=== PATIENT | female | born 1965 | race Caucasian/White ===

== ENCOUNTER 2024-07-30 16:00 | Outpatient (RCR) | payer OTHER, SELFPAY ==
--- NOTE | 2024-07-09 15:39 | PT.OIERPT ---
PT OP Initial Eval Patient Information Outpatient Physical Therapy Treatment Date: 07/09/24 Visit Reasons: RIGHT SHOULDER PAIN Medical Diagnosis: M25.511 Treatment Dx #1: R shoulder pain Start of Care: 07/09/24 Date of Onset: January 2024 Smoking Status Smoking Status: Never smoker Initial Assessment Subjective: Pt is 59 yr old female who reports onset of R shoulder pain in January with popping in the front of the shoulder. Increased pain with reaching up to the side, lifting things and reaching behind the back hurts the front of the shoulder. PMH: none reported Imaging: Xray of R shoulder Moderate narrowing glenohumeral joint Pt goal: less pain more ROM Objective: R shoulder ArOM: FF: 130 deg Abd: 90 deg ER: 90 deg IR: L5 Stearns-Guru: positive Empty can: positive Herrera's: negative Drop arm: negative Painful arc: positive Axial grind: negative Crepitus: positive over anterior shoulder between bicipital groove and supraspinatus insertion Assessment: Pt presentation consistent with supraspinatus tendinopathy, likely impingement. Pt requires skilled therapy in order to meet goals and has fair rehab potential. PT recommends further diagnostic imaging if ssx don't resolve with therapy. 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 Ind with HEP 2. Improved AROM into all planes to at least 130 deg FF and abduction 3. Pt will reach OH with <=3/10 R shoulder pain 4. Improved strength into all planes to at least 4-/5 Treatment Plan 1. Manual therapy ? 2. Therex ? 3. Modalities as indicated, moist heat, ice, estim ? Frequency and Duration: 1-2x a week for 12 visits Certification Dates: 07/09/24 to 10/05/24 Procedure Charges OP PT Eval Mod Complex 30 minutes: Yes
--- NOTE | 2024-07-21 17:43 | PT.ODAYNRPT ---
PT Outpatient Daily Note OP Daily Note Outpatient Physical Therapy Treatment Date: 07/21/24 Visit Reasons: RIGHT SHOULDER PAIN Subjective: Same as eval Objective: See F/S for therex P x7' Assessment: Pain limits abduction ROM Plan: Continue per POC Length of Time (minutes) of Treatment: 30 Minutes Procedure Charges Therapeutic Exercise 30 minutes: Yes
--- NOTE | 2024-07-30 18:38 | PT.ODAYNRPT ---
PT Outpatient Daily Note OP Daily Note Outpatient Physical Therapy Treatment Date: 07/30/24 Visit Reasons: RIGHT SHOULDER PAIN Subjective: A little less R shoulder pain Objective: See F/S for therex [facility] x7' Assessment: Pain limits abduction ROM consistent with supraspinatus impingement/tendinopathy Plan: Continue per POC Length of Time (minutes) of Treatment: 30 Minutes Procedure Charges Therapeutic Exercise 30 minutes: Yes
== END 2024-07-31 23:59 | disposition home or self-care (01) ==
LOC: CPTX 16:00
PROVIDERS: PCP Nurse Practitioner Family; Referring Provider Nurse Practitioner Family; Visit Provider Nurse Practitioner Family
DX: M25.511 Pain in right shoulder (principal)
CPT/HCPCS: 97110; 97162

== ENCOUNTER 2024-08-25 16:30 | Outpatient (RCR) | payer OTHER, SELFPAY ==
--- NOTE | 2024-08-06 17:32 | PT.ODAYNRPT ---
PT Outpatient Daily Note OP Daily Note Outpatient Physical Therapy Treatment Date: 08/06/24 Visit Reasons: RT shoulder pain Subjective: A little less R shoulder pain since starting therapy but still hurts to reach to the side Objective: See F/S for cecile TAVARES x7' Painful arc: positive Assessment: Pain limits abduction ROM consistent with supraspinatus impingement/tendinopathy Plan: Continue per POC Length of Time (minutes) of Treatment: 30 Minutes Procedure Charges Therapeutic Exercise 30 minutes: Yes
--- NOTE | 2024-08-11 18:17 | PT.ODAYNRPT ---
PT Outpatient Daily Note OP Daily Note Outpatient Physical Therapy Treatment Date: 08/11/24 Visit Reasons: RT shoulder pain Subjective: A little less R shoulder pain since starting therapy but still hurts to reach to the side Objective: See F/S for cecile TAVARES x7' Painful arc: positive Assessment: Pain limits abduction ROM consistent with supraspinatus impingement/tendinopathy Plan: Continue per POC Length of Time (minutes) of Treatment: 30 Minutes Procedure Charges Therapeutic Exercise 30 minutes: Yes
--- NOTE | 2024-08-18 17:18 | PT.ODAYNRPT ---
PT Outpatient Daily Note OP Daily Note Outpatient Physical Therapy Treatment Date: 08/13/24 Visit Reasons: RT shoulder pain Subjective: A little less R shoulder pain since starting therapy but still hurts to reach to the side Objective: See F/S for cecile TAVARES x7' Painful arc: positive Assessment: Slow progress with goals due to pain that limits abduction ROM consistent with supraspinatus impingement/tendinopathy Plan: Continue per POC Length of Time (minutes) of Treatment: 30 Minutes Procedure Charges Therapeutic Exercise 30 minutes: Yes
--- NOTE | 2024-08-18 17:20 | PT.ODAYNRPT ---
PT Outpatient Daily Note OP Daily Note Outpatient Physical Therapy Treatment Date: 08/18/24 Visit Reasons: RT shoulder pain Subjective: A little less R shoulder pain since starting therapy but still hurts to reach to the side Objective: See F/S for cecile TAVARES x7' Painful arc: positive Assessment: Slow progress with goals due to pain that limits abduction ROM consistent with supraspinatus impingement/tendinopathy Plan: Continue per POC Length of Time (minutes) of Treatment: 30 Minutes Procedure Charges Therapeutic Exercise 30 minutes: Yes
--- NOTE | 2024-08-20 17:35 | PT.ODAYNRPT ---
PT Outpatient Daily Note OP Daily Note Outpatient Physical Therapy Treatment Date: 08/20/24 Visit Reasons: RT shoulder pain Subjective: Getting better slowly with a little less R shoulder pain since starting therapy but still hurts to reach to the side Objective: See F/S for cecile TAVARES x7' Painful arc: positive Assessment: Slow progress with goals due to pain that limits abduction ROM consistent with supraspinatus impingement/tendinopathy Plan: Continue per POC Length of Time (minutes) of Treatment: 30 Minutes Procedure Charges Therapeutic Exercise 30 minutes: Yes
--- NOTE | 2024-08-25 17:10 | PT.ODAYNRPT ---
PT Outpatient Daily Note OP Daily Note Outpatient Physical Therapy Treatment Date: 08/25/24 Visit Reasons: RT shoulder pain Subjective: Was able to trim trees without significant pain in R shoulder this weekend Objective: See F/S for therex [facility] x7' Assessment: Pt is progressing slowly with goals Plan: Continue per POC Length of Time (minutes) of Treatment: 30 Minutes Procedure Charges Therapeutic Exercise 30 minutes: Yes
== END 2024-08-28 23:59 | disposition home or self-care (01) ==
LOC: CPTX 16:30
PROVIDERS: PCP Nurse Practitioner Family; Referring Provider Nurse Practitioner Family; Visit Provider Nurse Practitioner Family
DX: M25.511 Pain in right shoulder (principal)
CPT/HCPCS: 97110

== ENCOUNTER 2024-09-09 16:30 | Outpatient (RCR) | payer OTHER, SELFPAY ==
--- NOTE | 2024-08-31 17:20 | PTNOTE_ITS ---
PT Outpatient Daily Note OP Daily Note Outpatient Physical Therapy Treatment Date: 08/31/24 Visit Reasons: RT shoulder pain Subjective: No significant pain in R shoulder this weekend. It hurts in certain positions still Objective: See F/S for therex [facility] x7' Assessment: Pt is progressing slowly with goals but there is improved ROM of R shoulder Plan: Continue per POC Length of Time (minutes) of Treatment: 30 Minutes Procedure Charges Therapeutic Exercise 30 minutes: Yes
--- NOTE | 2024-09-02 17:54 | PTNOTE_ITS ---
PT Outpatient Daily Note OP Daily Note Outpatient Physical Therapy Treatment Date: 09/02/24 Visit Reasons: RT shoulder pain Subjective: No significant pain in R shoulder this weekend. It hurts in certain positions still Objective: See F/S for therex [facility] x7' Assessment: Pt is progressing slowly with goals but there is improved ROM of R shoulder Plan: Continue per POC Length of Time (minutes) of Treatment: 30 Minutes Procedure Charges Therapeutic Exercise 30 minutes: Yes
--- NOTE | 2024-09-07 18:22 | PTNOTE_ITS ---
PT Outpatient Daily Note OP Daily Note Outpatient Physical Therapy Treatment Date: 09/07/24 Visit Reasons: RT shoulder pain Subjective: No significant pain in R shoulder this weekend pulling weeds. It hurts in certain positions still Objective: See F/S for therex [facility] x7' Assessment: Pt is progressing slowly with goals but there is improved ROM of R shoulder Plan: Reassess Length of Time (minutes) of Treatment: 30 Minutes Procedure Charges Therapeutic Exercise 30 minutes: Yes
--- NOTE | 2024-09-09 17:36 | PTNOTE_ITS ---
PT OP Progress/Discharge Note Date of Service: 09/09/24 Progress Note/DC Note Progress Note/Discharge Note: Progress Note Patient Information Visit Reasons: RT shoulder pain Service Continue Service or Discharge: Continue Service Status Subjective: No significant pain in R shoulder over the weekend pulling weeds. It hurts in certain positions still to reach across her body Objective: See F/S for therex [facility] x7' R shoulder AROM: Strength: FF: 130 deg 4-/5 Abd: 120 deg 4-/5 ER: 90 deg Assessment: Pt has attended 06/11 Rx sessions with good progress with therapy goals. She has improved AROM into abduction almost enough to meet the goal of 130 deg. Pt can reach OH but has pain at end-range. She has met the goal of 4-/5 strength. Pt is progressing slowly with goals and ssx are consistent with RC tendinopathy/impi ngement. Plan: If provider wants pt to continue with therapy we will need another therapy order for more visits or a signature on this progress note to extend POC by 8 more visits. Procedure Charges Therapeutic Exercise 30 minutes: Yes
== END 2024-09-28 23:59 | disposition home or self-care (01) ==
LOC: CPTX 16:30
PROVIDERS: PCP Nurse Practitioner Family; Referring Provider Nurse Practitioner Family; Visit Provider Nurse Practitioner Family
DX: M25.511 Pain in right shoulder (principal)
CPT/HCPCS: 97110

== ENCOUNTER 2024-09-24 17:25 | Inpatient (IN) | payer BC, SELFPAY ==
[2024-09-24 18:06] VITALS: BP 123/76; PULSE 105; RESP 18; TEMP 38.3; O2SAT 95; BMI 25.7
--- NOTE | 2024-09-24 18:53 | XR_ITS ---
Examination: PA chest single view TECHNIQUE: Upright PA chest single view. Examination date time: September 24, 2024 1919 hours INDICATIONS: Coughing chest pain and chest tightness beginning 2 days ago FINDINGS: Normal heart size Accentuation of basilar bronchovascular markings Suspicious for early pneumonia left base Moderate osteopenia IMPRESSION: Basilar bronchitis pattern Suspicious for early pneumonia left base
--- NOTE | 2024-09-24 18:53 | EKG_ITS ---
[facility] Test Date: 2024-09-24 Pat Name: JOVI BONE Department: Room: - Gender: Female [employer]: : [id number] Requested By: Smith Raines Order Number: [id number] Reading MD: Smith Raines Measurements Intervals [place] Rate: 107 P: 44 NC: 121 QRS: 28 QRSD: 80 T: 18 QT: 312 QTc: 417 Interpretive Statements SINUS TACHYCARDIA ABNORMAL RHYTHM ECG No previous ECG available for comparison /store/S0/[id number]/ecg/[id number].pdf
--- NOTE | 2024-09-24 18:54 | EDRME_ITS ---
Rapid Medical Screening Exam [facility] Arrival date/time: 09/24/24 17:25 59F with no significant PMH presents to ED with 5 days of worsening cough, some SOB/CP, N/V, ab pain, and non-bloody diarrhea. Chief Complaint: Flu Like Symptoms Time Seen by Provider: 09/24/24 18:52 Vital signs: Vital Signs Temperature 100.9 F H 09/24/24 18:06 Pulse Rate 105 H 09/24/24 18:06 Respiratory Rate 18 09/24/24 18:06 Blood Pressure 123/76 09/24/24 18:06 Pulse Oximetry (%) 95 09/24/24 18:06 Oxygen Delivery Method Room Air 09/24/24 18:06
[2024-09-24 19:30] LABS: Collection Type, Urine Clean Catch
[2024-09-24 19:34] LABS: Lactate (Lactic Acid) 1.5 mMol/L (0.4-2.0)
[2024-09-24 19:38] LABS: Basophils % (Auto) 0 % (0-2.5); Eosinophils % (Auto) 0 % (0-10); Hematocrit 40.6 % (36.0-46.0); Hemoglobin 14.3 g/dL (12.0-16.0); Immature Granulocytes % (Auto) 0 % (0-0); Immature Granulocytes Auto 0.03 Thou/mm3 (0.00-0.00); Lymphocytes # (Auto) 0.5 Thou/mm3 (1.0-4.8); Lymphocytes % (Auto) 5 % (10-50); Mean Corpuscular HGB Conc 35.2 g/dl (31.0-37.0); Mean Corpuscular Hemoglobin 29.9 pg (25.0-35.0); Mean Corpuscular Volume 85 fL (80-100); Monocytes # (Auto) 0.5 Thou/mm3 (0.0-0.8); Monocytes % (Auto) 4 % (0-12); Neutrophils # (Auto) 9.8 Thou/mm3 (1.8-7.7); Neutrophils % (Auto) 91 % (37-80); Nucleated Red Blood Cell % 0 /100 WBC (0); Platelet Count 202 Thou/mm3 (140-440); RDW Standard Deviation 40.1 fL (36.4-46.3); Red Blood Count 4.78 Miln/mm3 (4.00-5.20); White Blood Count 10.8 Thou/mm3 (3.6-11.0)
[2024-09-24 20:02] LABS: Bacteria,Urine 3+; Bilirubin,Urine 1+ (Negative); Blood,Urine 2+ (Negative); Clarity,Urine Turbid (Clear/Hazy); Color,Urine Drk-Yellow (Lt Yel-Yel); Glucose, Urine Negative (Negative); Ketones,Urine 4+ (Negative); Leukocyte Esterase,Urine Negative (Negative); Nitrite,Urine Negative (Negative); PH,Urine 6.5 (5.0-7.0); Protein,Urine 3+ (Neg - Trace); RBC,Urine 5 /hpf (0-3); Specific Gravity,Urine 1.035 (1.001-1.035); Squamous Epithelial Cell,Urine 5 /hpf (0-5); WBC,Urine 18 /hpf (0-5)
[2024-09-24 20:07] LABS: Alanine Aminotransferase 39 U/L (10-49); Albumin, Serum 4.6 gm/dL (3.4-4.8); Albumin/Globulin Ratio 1.5 (1.2-2.2); Alkaline Phosphatase 100 U/L (46-116); Anion Gap 15 (7-16); Aspartate Amino Transferase 45 U/L (0-34); BUN/Creatinine Ratio 20 Ratio (12-20); Bilirubin,Total 2.4 mg/dL (0.3-1.2); Blood Urea Nitrogen 22 mg/dL (9-23); Calcium 8.9 mg/dL (8.3-10.6); Calcium (Corrected) 8.9 mg/dL (8.5-10.1); Chloride 95 mMol/L (98-107); Creatinine (Component) 1.1 mg/dL (0.6-1.3); Glucose 109 mg/dL (74-106); Lipase 31 U/L (12-53); Osmolality,Calculated 266 (275-295); Potassium 3.8 mMol/L (3.4-5.1); Procalcitonin 19.84 ng/ml (0.0-0.49); Sodium 131 mMol/L (136-145); Total Protein 7.6 gm/dL (5.7-8.2); Troponin I < 0.020 ng/mL (0.0-0.045); eGFR 57 See Note
--- NOTE | 2024-09-24 20:12 | XR_ITS ---
Examination: CT abdomen with intravenous contrast CT pelvis with intravenous contrast 2-D coronal reconstructions 2-D sagittal reconstructions Date and time of exam:September 24, 2024 2150 hours INDICATIONS: Right lower abdominal pain nausea vomiting diarrhea regaining 2 days ago. CTDI: vol (mGy) 8.13 DLP: (mGycm) 447 Technique: Multiple axial sections of the abdomen and pelvis have been obtained. 64 slice high-resolution scanner used. 3 mm axial sections have been obtained, post intravenous injection 60 cc Isovue 370 2-D sagittal, coronal reconstructions obtained. Low dose protocols were performed. One or more of the following dose reduction techniques were used; automated exposure control, adjustment of the mA and/or KV according to patient size, use of iterative reconstruction technique. Findings: Mild pneumonia left base No renal or ureteral calculi, no hydronephrosis No gallstones No renal or ureteral calculi, no hydronephrosis Multiple fluid distended small bowel loops Fluid enlarged and inflamed appendix medial to the cecum axial images 153 through 176 consistent with appendicitis No pelvic abscess Bladder intact IMPRESSION: Acute appendicitis No pelvic abscess
[2024-09-24] MEDS: SODIUM CHLORIDE 0.9% 1000 ML 1,000 ML 999 ML IV (21:00)
[2024-09-24] MEDS: ONDANSETRON INJ 2 MG/ML INJ 2 ML 4 MG IV (21:10)
[2024-09-24] MEDS: ACETAMINOPHEN 500 MG TABLET PO (21:11)
[2024-09-24] MEDS: cefTRIAXone/D5w 1gm IV premix 1 GM/50 ML BAG IV (21:11)
[2024-09-24] MEDS: OSELTAMIVIR 75 MG CAPSULE PO (23:08)
[2024-09-24] MEDS: MORPHINE SULF INJ 10 MG/ML VIAL 4 MG IVP (23:08)
[2024-09-24 23:14] VITALS: BP 103/65; PULSE 79; RESP 19; TEMP 36.8
--- NOTE | 2024-09-24 23:32 | PD.EDURI ---
Upper Respiratory Inf. RME/HPI General Chief Complaint: Flu Like Symptoms Stated Complaint: NAUSEA, DIARRHEA, VOMITING, AB PAIN Time Seen by Provider: 09/24/24 18:52 Arrival date/time: 09/24/24 17:25 RME / HPI RME / HPI Narrative: 59-year-old female patient with no past medical history, came in for evaluation regarding flulike symptoms. Patient's been having flulike symptoms for the last 5 days, described as cough, sore throat, mild shortness of breath, chest discomfort, nausea and vomiting. Last night patient developed right lower quadrant pain, sharp in character, severity moderate. Also complained of nonbloody loose stool. Denies any fever denies any other complaints no medications taken prior to arrival. Related Data Previous Rx's ?Medication ?Instructions ?Recorded hydrocodone 5 mg-acetaminophen 325 1 tab PO BID PRN pain #10 tabs 09/20/21 mg tablet ibuprofen 800 mg tablet 800 mg PO TID PRN pain #30 tabs 09/20/21 Allergies Allergy/AdvReac Type Severity Reaction Status Date / Time No Known Allergies Allergy Verified 09/24/24 17:28 Review of Systems Review of Systems Narrative Review of Systems: Review of system reviewed and within normal limits except mentioned in HPI ED Exam Narrative Physical exam: VITAL SIGNS: Reviewed. GENERAL APPEARANCE: Alert and interactive, follows commands, no acute distress, HEAD AND FACE: Non-traumatic. ENT: PERRL, pink conjunctivitis, eyelid no trauma, Mucous membrane moist. NECK: Supple, nontender, no nuchal rigidity. CHEST: No tenderness, no crepitus, no paradoxical movement, no retractions. LUNGS: Clear, well ventilated, symmetric, no rales, no wheezing, no ronchi, no stridor, good breath sounds bilaterally. HEART: Regular rate, regular rhythm, no murmur, no gallops. ABDOMEN: Soft, positive bowel sounds, nondistended, no guarding, right lower quadrant tenderness, no rebound, no masses, RECTAL: Deferred. GENITAL: Deferred. NEUROLOGICAL: Gross motor function intact sensory function intact, Appropriate for age. MUSCULOSKELETAL: low back nontender, full range of motion. EXTREMITIES: Nontender, full range of motion. SKIN: Color pink, dry, no rash, no lacerations, no abrasions, no contusions. LYMPHATICS: Deferred. Course Quality Measures none Orders Category Date Time Status Bedside COVID-19 Antigen Test NOW Care 09/24/24 18:31 Active Bedside Influenza A&B Antigen Test NOW Care 09/24/24 18:[address] Screening NOW Care 09/24/24 20:12 Active EKG (ED ONLY) *Do not use* NOW Care 09/24/24 18:53 Completed Insert IV NOW Care 09/24/24 18:53 Active NPO NOW Care 09/24/24 23:31 Active Consult to General Surgery Stat Cons 09/24/24 23:31 Ordered Diet NPO (NOW) Diet 09/24/24 23:[address] abdomen pelvis w con Stat Exams 09/24/24 20:12 Completed EKG (ED Only) Stat Exams 09/24/24 18:53 Draft XR chest 1V portable Stat Exams 09/24/24 18:53 Completed CBC Stat Lab 09/24/24 19:26 Completed Comprehensive Metabolic Panel Stat Lab 09/24/24 19:26 Completed Lactate (Lactic Acid) Stat Lab 09/24/24 19:26 Completed Lipase Stat Lab 09/24/24 19:26 Completed Procalcitonin Stat Lab 09/24/24 19:26 Completed Troponin I Stat Lab 09/24/24 19:26 Completed Urinalysis Stat Lab 09/24/24 19:15 Completed Acetaminophen Tab [Tylenol ES Tab] Med 09/24/24 18:53 Discontinued 500 mg PO X1 ONE Morphine Inj Med 09/24/24 22:54 Discontinued 4 mg IVP X1 ONE Ondansetron Inj [Zofran Inj] Med 09/24/24 18:53 Discontinued 4 mg IV X1 ONE Oseltamivir [Tamiflu] Med 09/24/24 22:53 Discontinued 75 mg PO X1 ONE Piper/Tazo 3.375 gm Premix [Zosyn] Med 09/24/24 23:30 Ordered 3.375 gm in 50 ml IV X1 Sodium Chloride 0.9% 1000 ml [Ns] 1,000 ml Med 09/24/24 18:53 Discontinued IV 999 mls/hr Sodium Chloride 0.9% 1000 ml [Ns] 1,000 ml Med 09/24/24 20:21 Discontinued IV 999 mls/hr cefTRIAXone/D5w 1gm IV premix [Rocephin/D5w 1gm IV Med 09/24/24 20:12 Discontinued premix] 1 gm in 50 ml IV X1 Vital Signs Vital signs: Vital Signs Temperature 100.9 F H 09/24/24 18:06 Pulse Rate 105 H 09/24/24 18:06 Respiratory Rate 18 09/24/24 18:06 Blood Pressure 123/76 09/24/24 18:06 Pulse Oximetry (%) 95 09/24/24 18:06 Oxygen Delivery Method Room Air 09/24/24 18:06 Upper Respiratory Infection [facility] Narrative [facility] Narrative:: 59-year-old female patient with no past medical history, came in for evaluation regarding flulike symptoms. Patient's been having flulike symptoms for the last 5 days, described as cough, sore throat, mild shortness of breath, chest discomfort, nausea and vomiting. Last night patient developed right lower quadrant pain, sharp in character, severity moderate. Also complained of nonbloody loose stool. Denies any fever denies any other complaints no medications taken prior to arrival. Patient tested positive for influenza. CBC no leukocytosis noted, total bili was noted to be 2.4 AST of 45 Pro-Nixon of 19.8, urinalysis positive for UTI. CT scan of the abdomen and pelvis showed acute appendicitis. Patient is having tenderness to the right lower quadrant also on palpation Patient received IV fluids morphine, IV ceftriaxone initially, I added IV Zosyn. I consulted Dr. Gavin, general surgeon on-call, and advised me to asked the hospitalist to admit the patient Patient data External records reviewed:: None Clinical information provided by:: none Social determinants that could affect healthcare access:: none Patient has the following chronic illnesses:: None How is presenting disease/condition affected by chronic disease/condition?: no chronic disease Evaluation data The following diagnostics were reviewed and interpreted by me:: lab results and radiology exam(s) Lab and/or radiology exams considered but not ordered:: None Interpretation Summary: See results in MDM Medications / Prescriptions Medications or Prescriptions considered but not ordered:: None none Medication administrations:: Medication Administration History Piperacillin/Tazobactam/Dextrose (Zosyn) 3.375 gm in 50 mls @ 100 mls/hr IV X1 ONE Stop: 09/24/24 23:59 Discontinued Medications Acetaminophen (Acetaminophen 500 Mg Tablet) 500 mg PO X1 ONE Stop: 09/24/24 18:54 Last Admin: 09/24/24 21:11 Dose: 500 mg Documented By: [email or web address] Sodium Chloride (Ns) 1,000 mls @ 999 mls/hr IV .Q1H1M ONE Stop: 09/24/24 19:53 Last Admin: 09/24/24 21:00 Dose: 999 mls/hr Documented By: Ceftriaxone Sodium/Dextrose (Rocephin/D5w 1gm Iv Premix) 1 gm in 50 mls @ 100 mls/hr IV X1 ONE Stop: 09/24/24 20:41 Last Admin: 09/24/24 21:11 Dose: 100 mls/hr Documented By: YUDY Sodium Chloride (Ns) 1,000 mls @ 999 mls/hr IV .Q1H1M ONE Stop: 09/24/24 21:21 Morphine Sulfate (Morphine Sulf Inj 10 Mg/Ml Vial) 4 mg IVP X1 ONE Stop: 09/24/24 22:55 Last Admin: 09/24/24 23:08 Dose: 4 mg Documented By: YUDY Ondansetron HCl (Ondansetron Inj 2 Mg/Ml Inj 2 Ml) 4 mg IV X1 ONE; Protocol Stop: 09/24/24 18:54 Last Admin: 09/24/24 21:10 Dose: 4 mg Documented By: YUDY Oseltamivir Phosphate (Oseltamivir 75 Mg Capsule) 75 mg PO X1 ONE Stop: 09/24/24 22:54 Last Admin: 09/24/24 23:08 Dose: 75 mg Documented By: YUDY Tamiflu, Zofran, morphine IV fluid ceftriaxone and IV Zosyn Consultations Consultation(s) initiated? (list below): No Diagnosis Upper Respiratory Differential Diagnosis: upper respiratory infection and influenza Most likely diagnosis given after review of the tests above:: Influenza, acute appendicitis Admission Indicated Admission indicated?: indicated Explain why admission is indicated or not indicated:: Patient is to be admitted for further management. Admission Request Was there a request for admission?: Yes Admission Attestation Admission request attestation: Discussed case with [Dr. Edmondson] from Hospitalist service regarding admission. Discussed patients ED course, exam findings, labs, and radiology results. The Hospitalist [agrees] to accept the patient for admission. Disposition Plan Disposition Plan: Admit Discharge Plan Plan Patient Disposition: Admit Acute Care w/in Hospital Disposition Comment: Stable Prescriptions/Referrals Prescriptions/Med Rec: No Action ibuprofen 800 mg tablet 800 mg PO TID PRN (Reason: pain) Qty: 30 0RF hydrocodone-acetaminophen 5-325 mg tablet 1 tab PO BID MDD 10 PRN (Reason: pain) Qty: 10 0RF Referrals: No Primary/Family,Physician [Primary Care Provider] - In 1 week Problem List Clinical Impression: Acute appendicitis, Influenza Patient/Caregiver Discharge Instructions Print Language: Chilean Stand Alone Forms: Willa Award Info., Patient Portal Info Letter
[2024-09-25] VITALS (7 sets, daily range): BP systolic 108–155; BP diastolic 63–95; PULSE 70–95; RESP 15–95; TEMP 36.1–36.9; O2SAT 93–99; BMI 26.4; BMI 25.7
[2024-09-25] MEDS: SODIUM CHLORIDE 0.9% 1000 ML 1,000 ML 999 ML IV (00:31)
[2024-09-25] MEDS: PIPER/TAZO 3.375 GM PREMIX 3.375 GM/50 ML BAG IV ×3 (00:36→21:22)
--- NOTE | 2024-09-25 00:43 | ESHP_ITS ---
Documentation for date of: 09/25/24 HPI History of Present Illness Chief complaint: Abdominal pain for one day before presentation History of present illness: HPI:A 59-year-old female patient with no past medical history presented to the ED due to acute abdominal pain that started in the lower abdomen for 1 day. Patient reported that the pain is dull aching associated with multiple episodes of vomiting and diarrhea. Denied any dysuria or frequency. 5 days before presentation patient reported that she had flulike symptoms in which she had runny nose, chills, fever, and cough in which she was treated with [id number] medications. Patient denied any vaginal discharge, change in color of urine, vomiting of blood or bleeding per rectum. Patient denied using any herbal meds or substances. Patient denied any similar symptoms in the past. Home medications: None ED course: At the ED patient was found to be septic with heart rate of 105, body temperature of 100.9, other vitals within normal limits saturating well on room air. Her labs showed borderline WBCs of 10.8, CMP was only significant for serum creatinine of 1.1, T. bili 2.4, AST 45 however ALT and alk phos were within normal limit, Pro-Nixon was 19.84, however lactic acid was within normal limits. Urinalysis was positive for blood, WBCs, bacteria, ketones and proteins however patient denied any urinary tract symptoms. Patient was tested for influenza and he was positive for influenza B. Chest x-ray showed suspicious left lower lobe pneumonia with possible bronchitis CT scan confirmed that the patient has left lower lobe pneumonia however also it showed radiological picture of acute appendicitis. No abscess was found. 2 L of fluid at the ED and was given Zofran and single dose of ceftriaxone and Tamiflu also was given a single dose of morphine for the pain patient was admitted for management of acute appendicitis PMH:None PSX:None Social hx: Alcohol: Denied Tobacco: Denied Illicit drugs: Denied Allergies: No known allergies Review of Systems Review of Systems Systems Reviewed: All systems reviewed, normal except as documented Exam Vital Signs Temp Pulse Resp BP Pulse Ox O2 Del Method 98.3 F 73 17 103/65 95 Room Air 09/24/24 23:14 09/25/24 00:41 09/25/24 00:41 09/24/24 23:14 09/24/24 18:06 09/24/24 23:14 Narrative Exam GEN: AOx3, able to speak full sentences. HEENT: NC/AC, PERRLA, oral mucosa moist, neck supple. CVS: RRR, S1-S2 present, no murmurs appreciated. RESP: CTAB. GI: Abdomen soft, mild tenderness in the right iliac fossa. No rebound tenderness negative Rovsing sign. MSK: Able to move all 4 limbs, no lower extremity edema. SKIN: Warm and dry. IRONING PLEATER: CN II-XII and Sensation grossly intact. Results: Labs 09/24/24 19:26 09/24/24 19:26 Labs: Short CBC 09/24/24 Range/Units 19:26 WBC 10.8 (3.6-11.0) Thou/mm3 Hgb 14.3 (12.0-16.0) g/dL Hct 40.6 (36.0-46.0) % Plt Count 202 (140-440) Thou/mm3 BMP 09/24/24 19:26 Sodium 131 L Potassium 3.8 Chloride 95 L Carbon Dioxide 21.0 BUN 22 Creatinine 1.1 Glucose 109 H Calcium 8.9 Cardiac Enzymes 09/24/24 Range/Units 19:26 Troponin I < 0.020 (0.0-0.045) ng/mL Liver Function 09/24/24 Range/Units 19:26 Total Bilirubin 2.4 H (0.3-1.2) mg/dL AST 45 H (0-34) U/L ALT 39 (10-49) U/L Alkaline Phosphatase 100 (46-116) U/L Albumin 4.6 (3.4-4.8) gm/dL Urine 09/24/24 Range/Units 19:15 Urine Color Drk-Yellow A (Lt Yel-Yel) Urine Clarity Turbid A (Clear/Hazy) Urine pH 6.5 (5.0-7.0) Ur Specific [place] 1.035 (1.001-1.035) Urine Protein 3+ A (Neg - Trace) Urine Glucose (UA) Negative (Negative) Quality Measures Quality Measures none Medications Home Medications and Allergies Allergies Allergy/AdvReac Type Severity Reaction Status Date / Time No Known Allergies Allergy Verified 09/24/24 17:28 Visit Medications Piperacillin/Tazobactam/Dextrose (Zosyn) 50 mls @ 100 mls/hr IV Q6HR TERA Stop: 10/02/24 05:59 Lactated Ringer's (Lactated Ringers) 1,000 mls @ 75 mls/hr IV .[id number] TERA Stop: 10/25/24 00:44 Acetaminophen (Ofirmev Inj) 1,000 mg in 100 mls @ 250 mls/hr IV Q6HR PRN PRN Reason: Fever or mild pain 1-3 Stop: 09/25/24 18:23 Morphine Sulfate (Morphine Sulf Inj 10 Mg/Ml Vial) 2 mg IVP Q3H PRN PRN Reason: PAIN SCALE 7-10 (Severe Stop: 09/30/24 00:33 Ondansetron HCl (Ondansetron Inj 2 Mg/Ml Inj 2 Ml) 4 mg IV Q6H PRN; Protocol PRN Reason: NAUSEA OR VOMITING Stop: 10/25/24 00:33 Oseltamivir Phosphate (Oseltamivir (State Provided) 75 Mg Capsule) 75 mg PO BID TERA Stop: 09/30/24 08:59 Pantoprazole Sodium (Pantoprazole Inj 40 Mg Vial) 40 mg IVP QDAY [facility] Stop: 10/25/24 08:59 Sodium Chloride (Sodium Chloride Rt 10% 15 Ml Nebu) 5 ml INH X1 ONE Stop: 09/25/24 00:35 Discontinued Medications Acetaminophen (Acetaminophen 500 Mg Tablet) 500 mg PO X1 ONE Stop: 09/24/24 18:54 Last Admin: 09/24/24 21:11 Dose: 500 mg Sodium Chloride (Ns) 1,000 mls @ 999 mls/hr IV .Q1H1M ONE Stop: 09/24/24 19:53 Last Infusion: 09/24/24 23:50 Dose: Infused Ceftriaxone Sodium/Dextrose (Rocephin/D5w 1gm Iv Premix) 1 gm in 50 mls @ 100 mls/hr IV X1 ONE Stop: 09/24/24 20:41 Last Infusion: 09/24/24 23:46 Dose: Infused Sodium Chloride (Ns) 1,000 mls @ 999 mls/hr IV .Q1H1M ONE Stop: 09/24/24 21:21 Last Admin: 09/25/24 00:31 Dose: 999 mls/hr Piperacillin/Tazobactam/Dextrose (Zosyn) 3.375 gm in 50 mls @ 100 mls/hr IV X1 ONE Stop: 09/24/24 23:59 Last Admin: 09/25/24 00:36 Dose: 100 mls/hr Morphine Sulfate (Morphine Sulf Inj 10 Mg/Ml Vial) 4 mg IVP X1 ONE Stop: 09/24/24 22:55 Last Admin: 09/24/24 23:08 Dose: 4 mg Ondansetron HCl (Ondansetron Inj 2 Mg/Ml Inj 2 Ml) 4 mg IV X1 ONE; Protocol Stop: 09/24/24 18:54 Last Admin: 09/24/24 21:10 Dose: 4 mg Oseltamivir Phosphate (Oseltamivir 75 Mg Capsule) 75 mg PO X1 ONE Stop: 09/24/24 22:54 Last Admin: 09/24/24 23:08 Dose: 75 mg Assessment & Plan Plan Summary:A 59-year-old female patient with no past medical history presented to the ED due to acute abdominal pain that started in the lower abdomen for 1 day. Patient reported that the pain is dull aching associated with multiple episodes of vomiting and diarrhea. Denied any dysuria or frequency. Patient was admitted for management of acute appendicitis. #Sepsis most likely secondary to acute appendicitis versus pneumonia #Acute appendicitis At the ED patient was found to be septic with heart rate of 105, body temperature of 100.9, other vitals within normal limits saturating well on room air. Her labs showed borderline WBCs of 10.8, CMP was only significant for serum creatinine of 1.1,, Pro-Nixon was 19.84, however lactic acid was within normal limits. Urinalysis was positive for blood, WBCs, bacteria, ketones and proteins however patient denied any urinary tract symptoms. CT scan showed radiological picture of acute appendicitis. Plan ? [facility] ? Surgical consultation to Dr. Nunes was ordered, recommendations appreciated ? Start the patient on Zosyn every 4 hours ? Start the patient on Ringer lactate 75 mL/h ? Pain management with Tylenol IV every 6 hours as needed, morphine 3 mg every 3 hours as needed ? Zofran for the nausea and vomiting ? Follow-up in the urine culture and blood culture results ? Keep patient n.p.o. in anticipation for appendectomy tomorrow morning ? Sent for coagulation panel and type and screen #Community-acquired pneumonia #Flu Patient reported flulike symptoms for the past 5 days. Associated with cough and chills. Patient was tested for influenza and he was positive for influenza B. We believe that this most likely influenza infection that is followed by secondary bacterial infection. Chest x-ray showed suspicious left lower lobe pneumonia with possible bronchitis CT scan confirmed that the patient has left lower lobe pneumonia Patient was given IV fluids in the ED 2 L, patient saturating well on room air and was given single dose of ceftriaxone. Plan ? Patient is already started on Zosyn as above ? MRSA screening was sent, follow-up on the results ? Sputum culture was sent follow-up on the final results ? Tamiflu #Hyperbilirubinemia T. bili 2.4, AST 45 however ALT and alk phos were within normal limit Physical examination there was no jaundice, no right upper quadrants pain or tenderness. We believe that hyperbilirubinemia is secondary to sepsis Plan ? Daily CMP ? Consider hepatitis and cholestasis workup if T. bili continue to increase Hospital Maintenance: FEN: N.p.o. DVT ppx: SCD GI ppx: Protonix IV lines: PIV Parra: None Code status: Full code Dispo: MedSurg Patient's plan and care discussed with my attending, Dr. Delvis Navarrete MD Internal Medicine PGY-2 Attending Provider Attestation/Addendum Pt was evaluated and plan formulated together with the housestaff team. I have reviewed the residents note above and agree with most of its content. Please refer to the residents note for additional details.
[2024-09-25 01:06] LABS: Partial Thromboplastin Time 33.8 Seconds (22.0-36.0); Prothrombin Time 11.3 Seconds (9.0-12.2)
[2024-09-25] MEDS: RINGERS LACTATED 1000 ML 1,000 ML 75 ML IV ×2 (01:49→14:13)
[2024-09-25 06:03] LABS: Basophils % (Auto) 0 % (0-2.5); Eosinophils % (Auto) 0 % (0-10); Hematocrit 32.1 % (36.0-46.0); Hemoglobin 11.4 g/dL (12.0-16.0); Immature Granulocytes % (Auto) 1 % (0-0); Immature Granulocytes Auto 0.07 Thou/mm3 (0.00-0.00); Lymphocytes # (Auto) 0.7 Thou/mm3 (1.0-4.8); Lymphocytes % (Auto) 11 % (10-50); Mean Corpuscular HGB Conc 35.5 g/dl (31.0-37.0); Mean Corpuscular Hemoglobin 30.7 pg (25.0-35.0); Mean Corpuscular Volume 87 fL (80-100); Monocytes # (Auto) 0.4 Thou/mm3 (0.0-0.8); Monocytes % (Auto) 6 % (0-12); Neutrophils # (Auto) 5.2 Thou/mm3 (1.8-7.7); Neutrophils % (Auto) 82 % (37-80); Nucleated Red Blood Cell % 0 /100 WBC (0); Platelet Count 130 Thou/mm3 (140-440); RDW Standard Deviation 41.1 fL (36.4-46.3); Red Blood Count 3.71 Miln/mm3 (4.00-5.20); White Blood Count 6.4 Thou/mm3 (3.6-11.0)
[2024-09-25] MEDS: PIPER/TAZO INJ 3.375 GM in SODIUM CHLORIDE 0.9% (Popper) 50 ML IV (06:21)
[2024-09-25 06:36] LABS: Alanine Aminotransferase 28 U/L (10-49); Albumin, Serum 3.5 gm/dL (3.4-4.8); Albumin/Globulin Ratio 1.5 (1.2-2.2); Alkaline Phosphatase 71 U/L (46-116); Anion Gap 11 (7-16); Aspartate Amino Transferase 38 U/L (0-34); BUN/Creatinine Ratio 21 Ratio (12-20); Blood Urea Nitrogen 17 mg/dL (9-23); Calcium (Corrected) 8.4 mg/dL (8.5-10.1); Carbon Dioxide 22.7 mMol/L (20.0-31.0); Chloride 102 mMol/L (98-107); Creatinine (Component) 0.8 mg/dL (0.6-1.3); Estimated Creatinine Clearance 92.3 mL/min (>60); Globulin 2.4 gm/dL (2.3-3.5); Glucose 88 mg/dL (74-106); Magnesium 2.4 mg/dL (1.6-2.6); Osmolality,Calculated 272 (275-295); Potassium 3.8 mMol/L (3.4-5.1); Sodium 136 mMol/L (136-145); Thyroid Stimulating Hormone 2.54 uIU/mL (0.55-4.78); Total Protein 5.9 gm/dL (5.7-8.2); eGFR > 60 See Note
[2024-09-25] MEDS: PANTOPRAZOLE INJ 40 MG VIAL IVP (08:34)
[2024-09-25] MEDS: OSELTAMIVIR 75 MG CAPSULE PO ×2 (08:35→21:23)
--- NOTE | 2024-09-25 08:40 | ESCONSULT_ITS ---
HPI Consult details History of present illness: 59F presenting with abdominal pain and flu-like symptoms. Pt reports she began having flu like symptoms a few days ago with runny nose, coughing, abdominal pain and diarrhea, however the morning before presentation she noted severe RLQ pain after eating which she had not had before. Because the pain persisted and she began having nausea/vomiting she sought care in ER, with workup indicating +influenza as well as acute appendicitis. In ER she had Tmax 100.9, WBC 10.8, but she has since remained afebrile and this am WBC is now 6. Pt is still feeling somewhat congested, has a cough with minimal production of sputum and reports her abdominal pain and nausea have improved since admission Of note pt has not yet had a colonoscopy PMH: None PSHx: None Meds: None Allergies: NKDA Family hx: no known malignancies Review of Systems Review of Systems ROS Unobtainable: All systems reviewed & no additional complaints except as documented Meds Home Medications and Allergies Allergies Allergy/AdvReac Type Severity Reaction Status Date / Time No Known Allergies Allergy Verified 09/24/24 17:28 Exam Vital Signs Temp Pulse Resp BP Pulse Ox O2 Del Method 98.5 F 80 16 109/67 96 Room Air 09/25/24 08:00 09/25/24 08:00 09/25/24 08:00 09/25/24 08:00 09/25/24 08:00 09/25/24 08:00 Constitutional Constitutional: no acute distress Routine Respiratory Exam Respiratory: Present no resp distress Routine Abdominal Exam Abdominal: Present soft and tenderness (minimal RLQ tenderness, negative Rovsing's sign); Absent distended, rebound, guarding or firm Results Results: Laboratory Laboratory results: results reviewed Results: Imaging CT scan - abdomen: report reviewed and image reviewed Assessment & Plan Plan 59F otherwise healthy presenting with signs and symptoms of influenza and acute appendicitis. I explained that while surgery would otherwise be recommended for her acute appendicitis, in the setting of her upper respiratory symptoms she is at risk for worsening pneumonia if she were to undergo general anesthesia. As she is clinically well with improved temperature and normalized WBC, and with minimal abdominal pain I explained that it is also reasonable to pursue non- operative management, which would mean IV antibiotics and gradually advancing diet. If her symptoms worsen or she develops other signs of worsening infection she may require a repeat CT scan to eval for a periappendiceal abscess, which if develops may be amenable to percutaneous drainage. Pt expressed understanding and we agreed on non-operative management. CLD Continue zosyn Trend vitals, WBC
[2024-09-25] MEDS: KETOROLAC INJ 30 MG/ML VIAL 15 MG IVP (14:12)
--- NOTE | 2024-09-25 14:17 | ESPR_ITS ---
<Statement entered by Natanael Leon MD - 09/26/24 17:11> I have discussed and was present for the essential components of the history, physical examination, diagnosis, and treatment plan with the resident. I agree with the patient's care as documented by the resident and amended herein by me. Natanael Leon MD FACP. <Statement entered by Sarah Costa MD - 09/26/24 14:38> I discussed with and supervised the summer internship physician who took care of this patient. I personally saw and examined the patient and discussed the assessment and plan with the entire medicine team, including my attending Dr. Leon, I agree with most of the assessment and plan as documented below Sarah Costa M.D. PGY-2 Documentation for date of: 09/25/24 Subjective Subjective Interval history: Patient seen today at the bedside fine awake, alert, into x 3. No overnight events reported. Vital signs stable at this time. Labs at this time are stable. General surgery did not recommend surgical intervention at this time as patient has influenza. At this time we will start the patient on clear liquid diet and advance as tolerated. Exam Vital Signs Temp Pulse Resp BP Pulse Ox O2 Del Method 97.6 F 71 15 115/65 93 L Room Air 09/25/24 12:00 09/25/24 12:00 09/25/24 12:00 09/25/24 12:00 09/25/24 12:00 09/25/24 12:00 Narrative Exam Physical Exam GENERAL: NAD, AAOx3 HEENT: Moist mucosa. Eyes open, symmetrical, & clear CARDIO: Heart RRR, no obvious murmurs PULM: No noted coughing/dyspnea CTA B/L, no R/W/R GI: Abdomen soft, nondistended, pain in RLQ, tenderness on LLQ radiating to RLQ. BSx4 SKIN/MSK/EXT: No wounds/rashes/edema/amputations, no pain on palpation. Pedal pulses present B/L NEURO: AAOx3, no focal neuro deficits, able to move all 4 extremities Objective Labs 09/25/24 05:24 09/25/24 05:24 Labs: Laboratory Results - last 24 hr 09/24/24 09/24/24 09/25/24 19:15 19:26 00:34 WBC 10.8 RBC 4.78 Hgb 14.3 Hct 40.6 MCV 85 MCH 29.9 MCHC 35.2 RDW Std Deviation 40.1 Plt Count 202 Neut % (Auto) 91 H Lymph % (Auto) 5 L [place] % (Auto) 4 Eos % (Auto) 0 Baso % (Auto) 0 Neut # (Auto) 9.8 H Lymph # (Auto) 0.5 L [place] # (Auto) 0.5 Eos # (Auto) 0.0 Baso # (Auto) 0.0 Immature Gran # (Auto) 0.03 H Absolute Nucleated RBC 0.00 Immature Gran % 0 Nucleated RBC % 0 PT 11.3 INR 1.0 APTT 33.8 Sodium 131 L Potassium 3.8 Chloride 95 L Carbon Dioxide 21.0 Anion Gap 15 BUN 22 Creatinine 1.1 Estim Creat Clear Calc 62.0 eGFR 57 L BUN/Creatinine Ratio 20 Glucose 109 H Calculated Osmolality 266 L Lactic Acid 1.5 Calcium 8.9 Corrected Calcium 8.9 Magnesium Total Bilirubin 2.4 H AST 45 H ALT 39 Alkaline Phosphatase 100 Troponin I < 0.020 Total Protein 7.6 Albumin 4.6 Globulin 3.0 Albumin/Globulin Ratio 1.5 Lipase 31 Procalcitonin 19.84 H TSH Ur Collection Type Clean Catch Urine Color Drk-Yellow A Urine Clarity Turbid A Urine pH 6.5 Ur Specific [place] 1.035 Urine Protein 3+ A Urine Glucose (UA) Negative Urine Ketones 4+ A Urine Blood 2+ A Urine Nitrite Negative Urine Bilirubin 1+ A Urine Urobilinogen (Auto) 4.0 Ur Leukocyte Esterase Negative Urine RBC 5 H Urine WBC 18 H Ur Squamous Epith Cells 5 Urine Bacteria 3+ A Blood Type O Positive Antibody Screen NEGATIVE Blood Bank Wristband ID Yes 09/25/24 05:24 WBC 6.4 D RBC 3.71 L Hgb 11.4 L D Hct 32.1 L MCV 87 MCH 30.7 MCHC 35.5 RDW Std Deviation 41.1 Plt Count 130 L D Neut % (Auto) 82 H Lymph % (Auto) 11 [place] % (Auto) 6 Eos % (Auto) 0 Baso % (Auto) 0 Neut # (Auto) 5.2 Lymph # (Auto) 0.7 L [place] # (Auto) 0.4 Eos # (Auto) 0.0 Baso # (Auto) 0.0 Immature Gran # (Auto) 0.07 H Absolute Nucleated RBC 0.00 Immature Gran % 1 H Nucleated RBC % 0 PT INR APTT Sodium 136 Potassium 3.8 Chloride 102 Carbon Dioxide 22.7 Anion Gap 11 BUN 17 Creatinine 0.8 Estim Creat Clear Calc 92.3 eGFR > 60 BUN/Creatinine Ratio 21 H Glucose 88 Calculated Osmolality 272 L Lactic Acid Calcium 8.0 L Corrected Calcium 8.4 L Magnesium 2.4 Total Bilirubin 1.0 D AST 38 H ALT 28 Alkaline Phosphatase 71 D Troponin I Total Protein 5.9 Albumin 3.5 D Globulin 2.4 Albumin/Globulin Ratio 1.5 Lipase Procalcitonin TSH 2.54 Ur Collection Type Urine Color Urine Clarity Urine pH Ur Specific [place] Urine Protein Urine Glucose (UA) Urine Ketones Urine Blood Urine Nitrite Urine Bilirubin Urine Urobilinogen (Auto) Ur Leukocyte Esterase Urine RBC Urine WBC Ur Squamous Epith Cells Urine Bacteria Blood Type Antibody Screen Blood Bank Wristband ID Quality Measures Quality Measures none Assessment & Plan Assessment Current Active Medications: Generic Name Dose Route Start Last Admin Trade Name Freq PRN Reason Stop Dose Admin Lactated Ringer's 1,000 mls @ 75 mls/hr 09/25/24 00:45 09/25/24 14:13 Lactated Ringers IV 10/25/24 00:44 75 mls/hr .[id number] TERA Administration Acetaminophen 1,000 mg in 100 mls @ 250 mls/hr 09/25/24 00:40 Ofirmev Inj IV 09/25/24 18:23 Q6HR PRN Fever or mild pain 1-3 Piperacillin/Tazobactam/Dextrose 3.375 gm in 50 mls @ 12.5 mls/hr 09/25/24 14:00 09/25/24 14:13 Zosyn IV 10/02/24 13:59 12.5 mls/hr Q8HR TERA Administration Ketorolac Tromethamine 15 mg 09/25/24 08:39 09/25/24 14:12 Ketorolac Inj 30 Mg/Ml Vial IVP 09/30/24 08:38 15 mg Q6H PRN Administration PAIN SCALE 4-6 (Moderate Morphine Sulfate 2 mg 09/25/24 00:34 Morphine Sulf Inj 10 Mg/Ml Vial IVP 09/30/24 00:33 Q3H PRN PAIN SCALE 7-10 (Severe Ondansetron HCl 4 mg 09/25/24 00:34 Ondansetron Inj 2 Mg/Ml Inj 2 Ml IV 10/25/24 00:33 Q6H PRN NAUSEA OR VOMITING Protocol Oseltamivir Phosphate 75 mg 09/25/24 09:00 09/25/24 08:35 Oseltamivir 75 Mg Capsule PO 10/02/24 08:59 75 mg BID TERA Administration Pantoprazole Sodium 40 mg 09/25/24 09:00 09/25/24 08:34 Pantoprazole Inj 40 Mg Vial IVP 10/25/24 08:59 40 mg QDAY TERA Administration Plan 59-year-old female patient with no past medical history presented to the ED due to acute abdominal pain that started in the lower abdomen for 1 day. Patient reported that the pain is dull aching associated with multiple episodes of vomiting and diarrhea. Denied any dysuria or frequency. Patient was admitted for management of acute appendicitis. #Sepsis-ruled out #Acute appendicitis #Community aquired pneumonia At the ED patient was found to be septic with heart rate of 105, body temperature of 100.9, other vitals within normal limits saturating well on room air. Labs showed borderline WBCs of 10.8, CMP was only significant for serum creatinine of 1.1,, Pro-Nixon was 19.84, however lactic acid was within normal limits. Urinalysis was positive for blood, WBCs, bacteria, ketones and proteins however patient denied any urinary tract symptoms. CT scan showed radiological picture of acute appendicitis. Patient came in and found to have 2 or more SIRS criteria and was evaluated for sepsis. However, based upon further work-up, sepsis was ruled out. ? General surgery consulted, appreciate recommendations ? On Zosyn ? On LR ? Pain control ? Follow-up blood and urine cultures ? Clear liquid diet advance as tolerated #Community-acquired pneumonia #Influenza Patient reported flulike symptoms for the past 5 days. Associated with cough and chills. Patient was tested for influenza and he was positive for influenza B. We believe that this most likely influenza infection that is followed by secondary bacterial infection. Chest x-ray showed suspicious left lower lobe pneumonia with possible bronchitis CT scan confirmed that the patient has left lower lobe pneumonia Patient was given IV fluids in the ED 2 L, patient saturating well on room air and was given single dose of ceftriaxone. ? on Zosyn as above ? MRSA screening was sent, follow-up on the results ? Sputum culture was sent follow-up on the final results ? Tamiflu #Hyperbilirubinemia-resolved T. bili 2.4, AST 45 however ALT and alk phos were within normal limit Physical examination there was no jaundice, no right upper quadrants pain or tenderness. We believe that hyperbilirubinemia is secondary to sepsis ? Daily CMP ? Consider hepatitis and cholestasis workup if T. bili continue to increase Case discussed with my senior Dr. Costa PGY-[address] Carolyn Bowie MD PGY-1 Disposition: Medsurg Fluids: LR Feeding: CLD Thrombo prophylaxis: SCDs Gastric Ulcer prophylaxis: Pantoprazole CODE STATUS: Full code
[2024-09-26] VITALS (7 sets, daily range): BP systolic 103–119; BP diastolic 58–67; PULSE 67–82; RESP 16–95; TEMP 36.1–37.2; O2SAT 92–97
[2024-09-26] MEDS: KETOROLAC INJ 30 MG/ML VIAL 15 MG IVP ×3 (01:39→21:14)
[2024-09-26 05:52] LABS: Basophils % (Auto) 0 % (0-2.5); Eosinophils % (Auto) 0 % (0-10); Hematocrit 32.8 % (36.0-46.0); Hemoglobin 11.2 g/dL (12.0-16.0); Immature Granulocytes % (Auto) 0 % (0-0); Immature Granulocytes Auto 0.02 Thou/mm3 (0.00-0.00); Lymphocytes # (Auto) 0.6 Thou/mm3 (1.0-4.8); Lymphocytes % (Auto) 11 % (10-50); Mean Corpuscular HGB Conc 34.1 g/dl (31.0-37.0); Mean Corpuscular Hemoglobin 29.8 pg (25.0-35.0); Mean Corpuscular Volume 87 fL (80-100); Monocytes # (Auto) 0.4 Thou/mm3 (0.0-0.8); Monocytes % (Auto) 7 % (0-12); Neutrophils # (Auto) 4.8 Thou/mm3 (1.8-7.7); Neutrophils % (Auto) 81 % (37-80); Nucleated Red Blood Cell % 0 /100 WBC (0); Platelet Count 172 Thou/mm3 (140-440); RDW Standard Deviation 42.2 fL (36.4-46.3); Red Blood Count 3.76 Miln/mm3 (4.00-5.20); White Blood Count 5.9 Thou/mm3 (3.6-11.0)
[2024-09-26] MEDS: RINGERS LACTATED 1000 ML 1,000 ML 75 ML IV (06:04)
[2024-09-26] MEDS: PIPER/TAZO 3.375 GM PREMIX 3.375 GM/50 ML BAG IV ×3 (06:04→21:14)
[2024-09-26 06:47] LABS: Alanine Aminotransferase 23 U/L (10-49); Albumin, Serum 3.4 gm/dL (3.4-4.8); Albumin/Globulin Ratio 1.5 (1.2-2.2); Alkaline Phosphatase 78 U/L (46-116); Anion Gap 11 (7-16); Aspartate Amino Transferase 28 U/L (0-34); BUN/Creatinine Ratio 19 Ratio (12-20); Blood Urea Nitrogen 15 mg/dL (9-23); Calcium 8.1 mg/dL (8.3-10.6); Calcium (Corrected) 8.6 mg/dL (8.5-10.1); Carbon Dioxide 22.3 mMol/L (20.0-31.0); Chloride 104 mMol/L (98-107); Creatinine (Component) 0.8 mg/dL (0.6-1.3); Estimated Creatinine Clearance 85.2 mL/min (>60); Globulin 2.2 gm/dL (2.3-3.5); Glucose 85 mg/dL (74-106); Magnesium 2.2 mg/dL (1.6-2.6); Osmolality,Calculated 273 (275-295); Phosphorous 3.1 mg/dL (2.4-5.1); Potassium 3.2 mMol/L (3.4-5.1); Sodium 137 mMol/L (136-145); Total Protein 5.6 gm/dL (5.7-8.2); eGFR > 60 See Note
[2024-09-26] MEDS: POTASSIUM CHLORIDE 20 mEq TABCR 40 MEQ PO (09:13)
[2024-09-26] MEDS: PANTOPRAZOLE INJ 40 MG VIAL IVP (09:13)
[2024-09-26] MEDS: OSELTAMIVIR 75 MG CAPSULE PO ×2 (09:14→20:20)
--- NOTE | 2024-09-26 12:11 | ESPR_ITS ---
<Statement entered by Natanael Leon MD - 09/26/24 17:13> I have discussed and was present for the essential components of the history, physical examination, diagnosis, and treatment plan with the resident. I agree with the patient's care as documented by the resident and amended herein by me. Natanael Leon MD FACP. Documentation for date of: 09/26/24 Subjective Subjective Interval history: Patient seen today at the bedside fine awake, alert, and x 3. No overnight events reported. Vital signs stable at this time. Labs at this time stable. Patient is tolerating diet will continue to advance per surgery if patient continues to tolerate diet can discharge in the next 24-48 hours. Exam Vital Signs Temp Pulse Resp BP Pulse Ox O2 Del Method 96.9 F 72 16 109/59 L 95 Room Air 09/26/24 12:00 09/26/24 12:00 09/26/24 12:00 09/26/24 12:00 09/26/24 12:00 09/26/24 12:00 Narrative Exam Physical Exam GENERAL: NAD, AAOx3 HEENT: Moist mucosa. Eyes open, symmetrical, & clear CARDIO: Heart RRR, no obvious murmurs PULM: No noted coughing/dyspnea CTA B/L, no R/W/R GI: Abdomen soft, nondistended, pain in RLQ, tenderness on LLQ radiating to RLQ. BSx4 SKIN/MSK/EXT: No wounds/rashes/edema/amputations, no pain on palpation. Pedal pulses present B/L NEURO: AAOx3, no focal neuro deficits, able to move all 4 extremities Objective Labs 09/26/24 04:25 09/26/24 04:25 Labs: Laboratory Results - last 24 hr 09/26/24 04:25 WBC 5.9 RBC 3.76 L Hgb 11.2 L Hct 32.8 L MCV 87 MCH 29.8 MCHC 34.1 RDW Std Deviation 42.2 Plt Count 172 D Neut % (Auto) 81 H Lymph % (Auto) 11 [place] % (Auto) 7 Eos % (Auto) 0 Baso % (Auto) 0 Neut # (Auto) 4.8 Lymph # (Auto) 0.6 L [place] # (Auto) 0.4 Eos # (Auto) 0.0 Baso # (Auto) 0.0 Immature Gran # (Auto) 0.02 H Absolute Nucleated RBC 0.00 Immature Gran % 0 Nucleated RBC % 0 Sodium 137 Potassium 3.2 L D Chloride 104 Carbon Dioxide 22.3 Anion Gap 11 BUN 15 Creatinine 0.8 Estim Creat Clear Calc 85.2 eGFR > 60 BUN/Creatinine Ratio 19 Glucose 85 Calculated Osmolality 273 L Calcium 8.1 L Corrected Calcium 8.6 Phosphorus 3.1 Magnesium 2.2 Total Bilirubin 1.0 AST 28 ALT 23 Alkaline Phosphatase 78 Total Protein 5.6 L Albumin 3.4 Globulin 2.2 L Albumin/Globulin Ratio 1.5 Quality Measures Quality Measures none Assessment & Plan Assessment Current Active Medications: Generic Name Dose Route Start Last Admin Trade Name Freq PRN Reason Stop Dose Admin Lactated Ringer's 1,000 mls @ 75 mls/hr 09/25/24 00:45 09/26/24 06:04 Lactated Ringers IV 10/25/24 00:44 75 mls/hr .[id number] TERA Administration Piperacillin/Tazobactam/Dextrose 3.375 gm in 50 mls @ 12.5 mls/hr 09/25/24 14:00 09/26/24 06:04 Zosyn IV 10/02/24 13:59 12.5 mls/hr Q8HR TERA Administration Ketorolac Tromethamine 15 mg 09/25/24 08:39 09/26/24 01:39 Ketorolac Inj 30 Mg/Ml Vial IVP 09/30/24 08:38 15 mg Q6H PRN Administration PAIN SCALE 4-6 (Moderate Morphine Sulfate 2 mg 09/25/24 00:34 Morphine Sulf Inj 10 Mg/Ml Vial IVP 09/30/24 00:33 Q3H PRN PAIN SCALE 7-10 (Severe Ondansetron HCl 4 mg 09/25/24 00:34 Ondansetron Inj 2 Mg/Ml Inj 2 Ml IV 10/25/24 00:33 Q6H PRN NAUSEA OR VOMITING Protocol Oseltamivir Phosphate 75 mg 09/25/24 09:00 09/26/24 09:14 Oseltamivir 75 Mg Capsule PO 10/02/24 08:59 75 mg BID TERA Administration Pantoprazole Sodium 40 mg 09/25/24 09:00 09/26/24 09:13 Pantoprazole Inj 40 Mg Vial IVP 10/25/24 08:59 40 mg QDAY TERA Administration Plan 59-year-old female patient with no past medical history presented to the ED due to acute abdominal pain that started in the lower abdomen for 1 day. Patient reported that the pain is dull aching associated with multiple episodes of vomiting and diarrhea. Denied any dysuria or frequency. Patient was admitted for management of acute appendicitis. #Sepsis-ruled out #Acute appendicitis #Community aquired pneumonia At the ED patient was found to be septic with heart rate of 105, body temperature of 100.9, other vitals within normal limits saturating well on room air. Labs showed borderline WBCs of 10.8, CMP was only significant for serum creatinine of 1.1,, Pro-Nixon was 19.84, however lactic acid was within normal limits. Urinalysis was positive for blood, WBCs, bacteria, ketones and proteins however patient denied any urinary tract symptoms. CT scan showed radiological picture of acute appendicitis. Patient came in and found to have 2 or more SIRS criteria and was evaluated for sepsis. However, based upon further work-up, sepsis was ruled out. Blood cultures negative ? General surgery consulted, appreciate recommendations ? On Zosyn ? Pain control ? Follow-up urine cultures ? bland diet advance as tolerated #Community-acquired pneumonia #Influenza Patient reported flulike symptoms for the past 5 days. Associated with cough and chills. Patient was tested for influenza and he was positive for influenza B. We believe that this most likely influenza infection that is followed by secondary bacterial infection. Chest x-ray showed suspicious left lower lobe pneumonia with possible bronchitis CT scan confirmed that the patient has left lower lobe pneumonia Patient was given IV fluids in the ED 2 L, patient saturating well on room air and was given single dose of ceftriaxone. ? on Zosyn as above ? MRSA screening was sent, follow-up on the results ? Sputum culture was sent follow-up on the final results ? Tamiflu #Hyperbilirubinemia-resolved T. bili 2.4, AST 45 however ALT and alk phos were within normal limit Physical examination there was no jaundice, no right upper quadrants pain or tenderness. We believe that hyperbilirubinemia is secondary to sepsis ? Daily CMP ? Consider hepatitis and cholestasis workup if T. bili continue to increase Case discussed with my attending Dr. Carolyn Bowie MD PGY-1 Disposition: Medsurg Fluids: LR Feeding: CLD Thrombo prophylaxis: SCDs Gastric Ulcer prophylaxis: Pantoprazole CODE STATUS: Full code
--- NOTE | 2024-09-26 13:24 | PD.SURPROG ---
Documentation for date of: 09/26/24 Subjective Subjective Brief History: 59F presenting with abdominal pain and flu-like symptoms. Pt reports she began having flu like symptoms a few days ago with runny nose, coughing, abdominal pain and diarrhea, however the morning before presentation she noted severe RLQ pain after eating which she had not had before. Because the pain persisted and she began having nausea/vomiting she sought care in ER, with workup indicating +influenza as well as acute appendicitis. In ER she had Tmax 100.9, WBC 10.8, but she has since remained afebrile and this am WBC is now 6. Pt is still feeling somewhat congested, has a cough with minimal production of sputum and reports her abdominal pain and nausea have improved since admission Of note pt has not yet had a colonoscopy PMH: None PSHx: None Meds: None Allergies: NKDA Family hx: no known malignancies Narrative: Pt feeling overall better today compared to admission, denies RLQ pain but having generalized abdominal pain with which toradol helps. No nausea, tolerating FLD, continuing to have diarrhea, remaining afebrile with normal WBC Exam Vital Signs Temp Pulse Resp BP Pulse Ox O2 Del Method 96.9 F 72 16 109/59 L 95 Room Air 09/26/24 12:00 09/26/24 12:00 09/26/24 12:00 09/26/24 12:00 09/26/24 12:00 09/26/24 12:00 Constitutional Constitutional: no acute distress Routine Respiratory Exam Respiratory: Present no resp distress Routine Abdominal Exam Abdominal: Present soft; Absent tenderness or distended Results Results: Laboratory Laboratory results: results reviewed Results: Imaging CT scan - abdomen: report reviewed and image reviewed Assessment & Plan Plan 59F otherwise healthy presenting with signs and symptoms of influenza and acute appendicitis, being managed medically due to ongoing influenza symptoms, recovering gradually Advance to bland diet Percocet PRN If remaining afebrile with pain controlled tomorrow consider DC with PO abx
[2024-09-27] VITALS: BP 104/56; PULSE 74; RESP 16; TEMP 36.4; O2SAT 94
[2024-09-27 04:00] VITALS: BP 115/69; PULSE 72; RESP 16; TEMP 36.4; O2SAT 92
[2024-09-27] MEDS: PIPER/TAZO 3.375 GM PREMIX 3.375 GM/50 ML BAG IV (05:11)
[2024-09-27 06:09] LABS: Basophils % (Auto) 0 % (0-2.5); Eosinophils # (Auto) 0.1 Thou/mm3 (0.0-0.5); Eosinophils % (Auto) 1 % (0-10); Hematocrit 31.4 % (36.0-46.0); Immature Granulocytes % (Auto) 1 % (0-0); Immature Granulocytes Auto 0.06 Thou/mm3 (0.00-0.00); Lymphocytes # (Auto) 0.8 Thou/mm3 (1.0-4.8); Lymphocytes % (Auto) 12 % (10-50); Mean Corpuscular Hemoglobin 30.7 pg (25.0-35.0); Mean Corpuscular Volume 88 fL (80-100); Monocytes # (Auto) 0.5 Thou/mm3 (0.0-0.8); Monocytes % (Auto) 7 % (0-12); Neutrophils # (Auto) 4.8 Thou/mm3 (1.8-7.7); Neutrophils % (Auto) 78 % (37-80); Nucleated Red Blood Cell % 0 /100 WBC (0); Platelet Count 250 Thou/mm3 (140-440); RDW Standard Deviation 43.4 fL (36.4-46.3); Red Blood Count 3.58 Miln/mm3 (4.00-5.20); White Blood Count 6.2 Thou/mm3 (3.6-11.0)
[2024-09-27 06:36] LABS: Alanine Aminotransferase 31 U/L (10-49); Albumin, Serum 3.4 gm/dL (3.4-4.8); Albumin/Globulin Ratio 1.5 (1.2-2.2); Alkaline Phosphatase 118 U/L (46-116); Anion Gap 7 (7-16); Aspartate Amino Transferase 49 U/L (0-34); BUN/Creatinine Ratio 14 Ratio (12-20); Bilirubin,Total 1.1 mg/dL (0.3-1.2); Blood Urea Nitrogen 11 mg/dL (9-23); Calcium 8.2 mg/dL (8.3-10.6); Calcium (Corrected) 8.7 mg/dL (8.5-10.1); Chloride 105 mMol/L (98-107); Creatinine (Component) 0.8 mg/dL (0.6-1.3); Estimated Creatinine Clearance 85.2 mL/min (>60); Globulin 2.3 gm/dL (2.3-3.5); Glucose 93 mg/dL (74-106); Magnesium 2.1 mg/dL (1.6-2.6); Osmolality,Calculated 275 (275-295); Phosphorous 2.9 mg/dL (2.4-5.1); Potassium 3.9 mMol/L (3.4-5.1); Sodium 138 mMol/L (136-145); Total Protein 5.7 gm/dL (5.7-8.2); eGFR > 60 See Note
[2024-09-27 08:00] VITALS: BP 127/71; PULSE 76; RESP 18; TEMP 36; O2SAT 96
[2024-09-27 08:04] VITALS: PULSE 75; RESP 18; RESP 97
[2024-09-27] MEDS: OSELTAMIVIR 75 MG CAPSULE PO (08:28)
[2024-09-27] MEDS: PANTOPRAZOLE INJ 40 MG VIAL IVP (08:28)
[2024-09-27] MEDS: KETOROLAC INJ 30 MG/ML VIAL 15 MG IVP (08:39)
--- NOTE | 2024-09-27 10:36 | ESDS_ITS ---
Planned Discharge Date 09/27/24 DS: Providers Provider Date of admission: 09/25/24 00:03 Primary care physician: Physician No Primary/Family Admitting Provider: Chico Edmondson MD Attending Provider on Admission: Natanael Leon MD Consults: 09/24/24 23:31 Consult to General Surgery Stat Comment: Acute appendicitis Consulting Provider: Virginia Gavin 09/25/24 01:47 Referral Infection Control Routine Comment: Reason for Infection Control Referral: Patient In Isolation Referral Registered Dietitian Routine Comment: Attending Provider on DC: Augusto Multani MD Discharging Provider: Augusto Multani MD DS: Diagnosis Problem List Completed Was Problem List Reviewed/Reconciled?: Yes Hospital Course Hospital Course Hospital course: A 59-year-old female patient with no past medical history presented to the ED due to acute abdominal pain that started in the lower abdomen for 1 day. Patient reported that the pain is dull aching associated with multiple episodes of vomiting and diarrhea. Denied any dysuria or frequency. 5 days before presentation patient reported that she had flulike symptoms in which she had runny nose, chills, fever, and cough in which she was treated with [id number] medications. Patient denied any vaginal discharge, change in color of urine, vomiting of blood or bleeding per rectum. Patient denied using any herbal meds or substances. Patient denied any similar symptoms in the past. Admitted for appendicitis. General surgery consulted. They adviced IV antibiotisc and bowel rest. patient's condition improved. Tolerated regular diet. General surgery recommended discharge with oral antibiotics and follow up in her clinic after discharge. Today, patient is clinically stable for discharge. All questions and concerns were addressed at bedside. Discharge plan: #Acute appendicitis: cipro 500mg PO BID and flagyl 500 mg PO TID for 7 days. F/u with Dr Gavin in the OP setting and PCP 1-2 weeks after discharge. - Patient's care was discussed with my attending physician, Dr. Carolyn Multani MD Internal Medicine PGY-3 Status at Discharge Functional status at discharge: independent ambulation Overall status at discharge: patient is back to baseline Time Spent with Patient Time attestation: Total time spent providing and/or coordinating discharge services: Time spent: Greater than 30 minutes Exam Vital Signs Temp Pulse Resp BP Pulse Ox O2 Del Method 96.8 F 75 18 127/71 96 Room Air 09/27/24 08:00 09/27/24 08:04 09/27/24 08:04 09/27/24 08:00 09/27/24 08:00 09/27/24 08:00 Narrative Exam Physical Exam GENERAL: NAD, AAOx3 HEENT: Moist mucosa. Eyes open, symmetrical, & clear CARDIO: Heart RRR, no obvious murmurs PULM: No noted coughing/dyspnea CTA B/L, no R/W/R GI: Abdomen soft, nondistended, very mild discomfort in RLQ, mild tenderness on LLQ radiating to RLQ. BSx4 SKIN/MSK/EXT: No wounds/rashes/edema/amputations, no pain on palpation. Pedal pulses present B/L NEURO: AAOx3, no focal neuro deficits, able to move all 4 extremities Discharge Plan Plan Patient Disposition: HOME (Self Care) Disposition Comment: Stable Patient condition on transfer: Stable Care Plan Goals: Patient will be discharged home. Discharge medications include: flagyl 500mg oral three times a day for 7 days and cipro 500mg oral twice a day for 7 days. Follow up with PCP in 1 week after discharge Follow up with general surgeon Dr Gavin in 1-2 weeks Prescriptions/Referrals Prescriptions/Med Rec: New ciprofloxacin HCl 500 mg tablet 500 mg PO Q12H 7 Days Qty: 14 0RF metronidazole 500 mg tablet 500 mg PO TID 7 Days Qty: 21 0RF ketorolac 10 mg tablet 10 mg PO Q8H Qty: 10 0RF Rx Instructions: maximum total duration of 5 days from all oral, intranasal, or parenteral formulations Continued ibuprofen 800 mg tablet 800 mg PO TID PRN (Reason: pain) Qty: 30 0RF hydrocodone-acetaminophen 5-325 mg tablet 1 tab PO BID MDD 10 PRN (Reason: pain) Qty: 10 0RF Referrals: No Primary/Family,Physician [Primary Care Provider] - Patient/Caregiver Discharge Instructions Discharge Activity: activity as tolerated Education Materials: What Is Appendicitis?, Discharge Instructions for ..., Preventing Common Respiratory ..., The Flu (Influenza) Print Language: [place] Stand Alone Forms: Willa Award Info., Patient Portal Info Letter Discharge Order Discharge Orders: Discharge (Routine); Ordered 09/27/24 Ordered By: Augusto Multani Quality Discharge Quality Measures VTE prophylaxis
== END 2024-09-27 11:49 | disposition home or self-care (01) | DRG 393 ==
LOC: SERX 23:30 → SERHOLD 09-25 00:20 → S3NX 09-25 01:18
PROVIDERS: Physician Assistant; Student in an Organized Health Care Education/Training Program; Admitting Provider Internal Medicine; Emergency Provider Emergency Medicine; Visit Provider Internal Medicine
DX: K35.80 Unspecified acute appendicitis (principal); J11.00 Influenza due to unidentified influenza virus with unspecified type of pneumonia; J18.9 Pneumonia, unspecified organism; N39.0 Urinary tract infection, site not specified; E80.6 Other disorders of bilirubin metabolism
CPT/HCPCS: 36415; 71045; 74177; 80053; 81001; 83605; 83690; 83735; 84100; 84145; 84443; 84484; 85025; 85610; 85730; 86850; 86900; 86901; 87040; 87081; 87086; 87205; 87400; 87811; 93005; 96361; 96365; 96366; 96375; 99285; A4649; J0696; J1885; J2270; J2405; J2470; J2543; J7030; J7050; J7120; Q9967; A9270

== ENCOUNTER → 2024-09-28 | Outpatient (CLI) | payer BC, SELFPAY ==
[2024-09-28 15:30] LABS: Lactate (Lactic Acid) 0.8 mMol/L (0.4-2.0)
[2024-09-28 15:33] LABS: Basophils % (Auto) 0 % (0-2.5); Eosinophils % (Auto) 1 % (0-10); Hematocrit 32.7 % (36.0-46.0); Hemoglobin 11.3 g/dL (12.0-16.0); Immature Granulocytes % (Auto) 1 % (0-0); Immature Granulocytes Auto 0.08 Thou/mm3 (0.00-0.00); Lymphocytes # (Auto) 0.9 Thou/mm3 (1.0-4.8); Lymphocytes % (Auto) 10 % (10-50); Mean Corpuscular HGB Conc 34.6 g/dl (31.0-37.0); Mean Corpuscular Hemoglobin 30.2 pg (25.0-35.0); Mean Corpuscular Volume 87 fL (80-100); Monocytes # (Auto) 0.7 Thou/mm3 (0.0-0.8); Monocytes % (Auto) 8 % (0-12); Neutrophils # (Auto) 7.1 Thou/mm3 (1.8-7.7); Neutrophils % (Auto) 81 % (37-80); Nucleated Red Blood Cell % 0 /100 WBC (0); Platelet Count 348 Thou/mm3 (140-440); RDW Standard Deviation 44.4 fL (36.4-46.3); Red Blood Count 3.74 Miln/mm3 (4.00-5.20); White Blood Count 8.7 Thou/mm3 (3.6-11.0)
== END | disposition home or self-care (01) ==
PROVIDERS: PCP Physician Assistant; Referring Provider Nurse Practitioner Family; Visit Provider Nurse Practitioner Family
DX: K35.80 Unspecified acute appendicitis (principal)
CPT/HCPCS: 36415; 83605; 85025

== ENCOUNTER 2024-10-01 14:30 | Outpatient (AMB) | payer BC, SELFPAY ==
[2024-10-01 14:40] VITALS: BP 117/77; PULSE 78; RESP 18; TEMP 36.4; O2SAT 97; BMI 25.7
--- NOTE | 2024-10-01 14:40 | GSCOFFNT_ITS ---
Vital Signs - [facility] 10/01/24 14:40 Height 1.83 m Height Method Stated Weight 86.268 kg Weight Measurement Method Standing Scale BMI 25.7 BP 117/77 Blood Pressure Source Automatic Cuff Blood Pressure Location Right Upper Arm Position Sitting Respiration 18 Pulse 78 Pulse Source Monitor Temp 97.5 F Temp Source Temporal Artery Scan Pulse Oximetry (%) 97 Oxygen Delivery Method Room Air Med/Allergies Allergies & Medications Allergies No Known Allergies Allergy (Verified 10/01/24 14:40) Medication Reconciliation hydrocodone 5 mg-acetaminophen 325 mg tablet 1 tab PO BID PRN pain #10 tabs 09/20/21 [Rx Confirmed 10/01/24] ibuprofen 800 mg tablet 800 mg PO TID PRN pain #30 tabs 09/20/21 [Rx Confirmed 10/01/24] ciprofloxacin HCl 500 mg tablet 500 mg PO Q12H 7 days #14 tabs 09/27/24 [Rx Confirmed 10/01/24] ketorolac 10 mg tablet 10 mg PO Q8H #10 tabs 09/27/24 [Rx Confirmed 10/01/24] metronidazole 500 mg tablet 500 mg PO TID 7 days #21 tabs 09/27/24 [Rx Confirmed 10/01/24] MA Intake Visit Data Collection New Patient or Established: Established Patient (seen at [facility] within 3 years) Seen by Clinical Staff ONLY (RN/MA): No Pain Present Currently: No 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: No PCP or OBGYN visit in last 3 months: Yes Hx Now: No Do You Feel Safe at Home: Yes Authorities Contacted: N/A Smoking Status Smoking Status: Never smoker Immunization / Flu Flu Vaccine in the Last 12 Months: No Flu Vaccine Exclusion Criteria: No Exclusion Criteria Past Medical History Past Medical History CARDIAC: Negative Cardiac Disorders or Congestive Heart Failure RESPIRATORY: Negative Chronic Obstructive Pulmonary Disease (COPD) or Asthma GENITOURINARY: Negative Renal Disease ENDOCRINE: Negative Diabetes Mellitus Type 1 or Diabetes Mellitus Type 2 HEMATOLOGIC: Negative Sickle Cell Disease Social History SMOKING STATUS: Smoking status: Never smoker ALCOHOL: Alcohol Intake: Never HOUSING: Housing: House LIVES WITH: Lives With: Spouse HPI HPI Narrative 59F who presented 09/24 to ER with symptoms of flu and acute appendicitis, managed medically and discharged home on 09/27 here for follow up. Pt was discharged with cipro/flagyl which she has been taking as prescribed and will c omplete in two days; she notes that she feels well overall but after taking the antibiotics she does tend to have abdominal discomfort and diarrhea. Her pain is controlled, she does tend to need to take pain medications at night when it worsens but otherwise it is overall improved. She denies any nausea but her appetite has not yet returned to baseline. Her flu symptoms have improved and she has not noted any fevers at home ROS Review of Systems Systems Reviewed: All systems reviewed, normal except as documented Objective/Exam General General Appearance: alert, cooperative and well groomed Resp Respiratory exam: Absent respiratory distress Abdominal Abdominal exam: Present soft; Absent distention or tenderness Assessment & Plan Diagnosis / Problem List (1) Acute appendicitis: Status: Acute Assessment & Plan: 59F with acute appendicitis managed medically due to influenza symptoms, gradually recovering. As pt has not yet had a colonoscopy I recommended she undergo that procedure approx 12 weeks from her episode of appendicitis; she anticipates not having insurance after November so would like to do so around that time Plan: F/u in 4 weeks Office Procedures GNS Level of Care Nursing/Assessment Patient Status: Established Patient Nursing Assessment/Reassesment: Medication Reconciliation, Update PMH in EMR and Vital Signs Coordination of Care: Complex Care and Chronic Disease 1-5, Education Complex Pt/Fam, Consent,records obtained, informed consent, Results/Orders obtained and Staff clarify orders Established Patient Charge Established Patient Point Assignment: 95 Established Patient Point Charge: EP Level 3 (80-115) Patient Portal Questionaires Social History Living Situation History Housing: House Tobacco History Smoking Status: Never smoker Alcohol History Alcohol Intake: Never Domestic Abuse History Do You Feel Safe at Home: Yes Review of Systems Report any current symptoms Only answer those that you have currently: Past Medical History Past Medical History Have you ever been diagnosed with any of the following: Cardiology Problems Congestive Heart Failure: No Respiratory Problems Chronic Obstructive Pulmonary Disease (COPD): No Asthma: No Genital/Urinary Problems Renal Disease: No Endocrine Problems Diabetes Mellitus Type 1: No Diabetes Mellitus Type 2: No Blood Problems Sickle Cell Disease: No
== END 2024-10-01 14:58 | disposition home or self-care (01) ==
LOC: HODSRG 14:30
PROVIDERS: Supervising Provider Surgery; Visit Provider Surgery
DX: K35.80 Unspecified acute appendicitis (principal)
CPT/HCPCS: 99213; G0463

== ENCOUNTER 2024-10-29 15:33 | Outpatient (AMB) | payer BC, SELFPAY ==
--- NOTE | 2024-10-29 15:39 | GSCOFFNT_ITS ---
Vital Signs - [facility] 10/29/24 15:40 Height 1.83 m Height Method Stated Weight 82.27 kg Weight Measurement Method Standing Scale BMI 24.5 BP 123/73 Blood Pressure Source Automatic Cuff Blood Pressure Location Left Upper Arm Position Sitting Respiration 18 Pulse 78 Pulse Source Monitor Temp 97.7 F Temp Source Temporal Artery Scan Pulse Oximetry (%) 93 L Oxygen Delivery Method Room Air Med/Allergies Allergies & Medications Allergies No Known Allergies Allergy (Verified 10/29/24 15:40) Medication Reconciliation hydrocodone 5 mg-acetaminophen 325 mg tablet 1 tab PO BID PRN pain #10 tabs 09/20/21 [Rx Confirmed 10/29/24] ibuprofen 800 mg tablet 800 mg PO TID PRN pain #30 tabs 09/20/21 [Rx Confirmed 10/29/24] ketorolac 10 mg tablet 10 mg PO Q8H #10 tabs 09/27/24 [Rx Confirmed 10/29/24] MA Intake Visit Data Collection New Patient or Established: Established Patient (seen at [facility] [place] within 3 years) Seen by Clinical Staff ONLY (RN/MA): No Reason for Visit:: APPENDICITIS FOLLOW UP Pain Present Currently: No PCP or OBGYN visit in last 3 months: Yes Hx Now: No Do You Feel Safe at Home: Yes Authorities Contacted: N/A Smoking Status Smoking Status: Never smoker Immunization / Flu Flu Vaccine in the Last 12 Months: Yes Flu Vaccine Exclusion Criteria: Already Received Past Medical History Past Medical History CARDIAC: Negative Cardiac Disorders or Congestive Heart Failure RESPIRATORY: Negative Chronic Obstructive Pulmonary Disease (COPD) or Asthma GENITOURINARY: Negative Renal Disease ENDOCRINE: Negative Diabetes Mellitus Type 1 or Diabetes Mellitus Type 2 HEMATOLOGIC: Negative Sickle Cell Disease Social History SMOKING STATUS: Smoking status: Never smoker ALCOHOL: Alcohol Intake: Never HOUSING: Housing: House LIVES WITH: Lives With: Spouse HPI HPI Narrative 59F with acute appendicitis managed medically due to influenza symptoms 09/24- 09/27/24 here for planned follow up. Pt reports feeling much better with no more abdominal pain, no nausea, she is eating well although still avoiding certain foods and having regular BMs ROS Review of Systems Systems Reviewed: All systems reviewed, normal except as documented Objective/Exam General General Appearance: alert, cooperative and well groomed Resp Respiratory exam: Absent respiratory distress Assessment & Plan Diagnosis / Problem List (1) Acute appendicitis: Status: Acute Assessment & Plan: 59F with acute appendicitis managed medically due to influenza symptoms 08/2024 recovering well. I explained benefits/risks of colonoscopy including bleeding, perforation requiring emergent surgery and/or the possibility of needing to abort for safety. All questions were answered and pt is agreeable to proceeding Plan: Colonoscopy November 2024 Office Procedures GNS Level of Care Nursing/Assessment Patient Status: Established Patient Nursing Assessment/Reassesment: Medication Reconciliation, Update PMH in EMR and Vital Signs Coordination of Care: Complex Care and Chronic Disease 1-5, Consent,records o btained, informed consent, Education Simp Pt/Fam, Results/Orders obtained and Staff clarify orders Established Patient Charge Established Patient Point Assignment: 90 Established Patient Point Charge: EP Level 3 (80-115) Patient Portal Questionaires Social History Living Situation History Housing: House Tobacco History Smoking Status: Never smoker Alcohol History Alcohol Intake: Never Domestic Abuse History Do You Feel Safe at Home: Yes Review of Systems Report any current symptoms Only answer those that you have currently: Past Medical History Past Medical History Have you ever been diagnosed with any of the following: Cardiology Problems Congestive Heart Failure: No Respiratory Problems Chronic Obstructive Pulmonary Disease (COPD): No Asthma: No Genital/Urinary Problems Renal Disease: No Endocrine Problems Diabetes Mellitus Type 1: No Diabetes Mellitus Type 2: No Blood Problems Sickle Cell Disease: No
[2024-10-29 15:40] VITALS: BP 123/73; PULSE 78; RESP 18; TEMP 36.5; O2SAT 93; BMI 24.5
== END 2024-10-29 15:49 | disposition home or self-care (01) ==
LOC: HODSRG 15:33
PROVIDERS: PCP Physician Assistant; Referring Provider Physician Assistant; Supervising Provider Surgery; Visit Provider Surgery
DX: K35.80 Unspecified acute appendicitis (principal)
CPT/HCPCS: 99213; G0463

== ENCOUNTER 2024-12-15 09:25 | Day surgery (SDC) | payer BC, SELFPAY ==
[2024-12-15] VITALS (12 sets, daily range): BP systolic 100–171; BP diastolic 65–96; PULSE 53–97; RESP 12–22; TEMP 36.1–36.6; O2SAT 97–100; BMI 24.5
[2024-12-15] MEDS: RINGERS LACTATED 1000 ML 1,000 ML 125 ML IV (10:56)
[2024-12-15] MEDS: MIDAZOLAM INJ 1 MG/ML VIAL 2 ML (ASD USE ONLY) 2 MG IVP (10:56)
[2024-12-15] MEDS: DiphenhydrAMINE INJ 50 MG/ML VIAL 25 MG IVP (10:57)
[2024-12-15] MEDS: fentaNYL CIT INJ 50 mCg/ML AMP 2ML (ASD USE ONLY) IVP (10:57)
== END 2024-12-15 12:00 | disposition home or self-care (01) ==
PROVIDERS: PCP Physician Assistant; Referring Provider Surgery; Visit Provider Surgery
PROC: 0DBE8ZX Excision of Large Intestine, Via Natural or Artificial Opening Endoscopic, Diagnostic (ICD-10-PCS; CPT 45380; principal; 2024-12-15 10:00)
DX: Z12.11 Encounter for screening for malignant neoplasm of colon (principal); K63.89 Other specified diseases of intestine; D12.8 Benign neoplasm of rectum; K57.30 Diverticulosis of large intestine without perforation or abscess without bleeding; K52.9 Noninfective gastroenteritis and colitis, unspecified
CPT/HCPCS: 45380; J1200; J2250; J3010; J7120

== ENCOUNTER 2024-12-21 10:36 | Outpatient (AMB) | payer BC, SELFPAY ==
[2024-12-21 10:47] VITALS: BP 110/73; PULSE 70; RESP 18; TEMP 36.4; O2SAT 97; BMI 24.7
--- NOTE | 2024-12-21 10:47 | PD.GSCLVISIT ---
Vital Signs - [facility] 12/21/24 10:47 Height 1.83 m Height Method Stated Weight 82.809 kg Weight Measurement Method Standing Scale BMI 24.7 BP 110/73 Blood Pressure Source Automatic Cuff Blood Pressure Location Left Upper Arm Position Sitting Respiration 18 Pulse 70 Pulse Source Monitor Temp 97.5 F Temp Source Temporal Artery Scan Pulse Oximetry (%) 97 Oxygen Delivery Method Room Air Med/Allergies Allergies & Medications Allergies No Known Allergies Allergy (Verified 12/21/24 10:48) Medication Reconciliation Unobtainable 12/21/24 [History Confirmed 12/21/24] MA Intake Visit Data Collection New Patient or Established: Established Patient (seen at [facility] within 3 years) Seen by Clinical Staff ONLY (RN/MA): No Reason for Visit:: COLONOSCOPY RESULTS Pain Present Currently: No PCP or OBGYN visit in last 3 months: Yes Smoking Status Smoking Status: Never smoker Immunization / Flu Flu Vaccine in the Last 12 Months: No Flu Vaccine Exclusion Criteria: No Exclusion Criteria Past Medical History Past Medical History NEUROLOGIC: Negative Neurological Disorders or Seizures CARDIAC: Negative Cardiac Disorders or Congestive Heart Failure RESPIRATORY: Negative Chronic Obstructive Pulmonary Disease (COPD) or Asthma GASTROINTESTINAL: Negative Gastrointestinal Disorders GENITOURINARY: Negative Genitourinary Disorders or Renal Disease ENDOCRINE: Negative Endocrine Disorders, Diabetes Mellitus Type 1 or Diabetes Mellitus Type 2 HEMATOLOGIC: Negative Sickle Cell Disease OTHER HISTORY: Positive Chicken Pox; Negative Developmental Delay, Falls or Blood Transfusions Social History SMOKING STATUS: Smoking status: Never smoker ALCOHOL: Alcohol Intake: Never HOUSING: Housing: House LIVES WITH: Lives With: Spouse HPI HPI Narrative 59F treated medically for appendicitis August 2024 due to concomitant flu now s/p diagnostic colonoscpy 11/2024 here to discuss results. Pt reports feeling very well with no abdominal pain, and she was found to have colonic inflammation adjacent to the appendiceal orifice which was benign as well as a small tubular adenoma in the rectum ROS Review of Systems Systems Reviewed: All systems reviewed, normal except as documented Objective/Exam General General Appearance: alert, cooperative and well groomed Resp Respiratory exam: Absent respiratory distress Results Colonoscopy, pathology reports reviewed Assessment & Plan Diagnosis / Problem List (1) Encounter to discuss colonoscopy results: Status: Acute Assessment & Plan: 59F treated medically for acute appendicitis August 2024 now s/p diagnostic colonoscopy with findings of inflammation near the appendiceal orifice as well as a small tubular adenoma. Based on this result pt should undergo surveillance colonoscopy in 7 years Plan: Follow up as needed Office Procedures GNS Level of Care Nursing/Assessment Patient Status: Established Patient Nursing Assessment/Reassesment: Medication Reconciliation, Update PMH in EMR and Vital Signs Coordination of Care: Complex Care and Chronic Disease 1-5, Consent,records obtained, informed consent, Education Simp Pt/Fam, Results/Orders obtained and Staff clarify orders Established Patient Charge Established Patient Point Assignment: 90 Established Patient Point Charge: EP Level 3 (80-115) Patient Portal Questionaires Social History Living Situation History Housing: House Tobacco History Smoking Status: Never smoker Alcohol History Alcohol Intake: Never Review of Systems Report any current symptoms Only answer those that you have currently: Past Medical History Past Medical History Have you ever been diagnosed with any of the following: Neurological Problems Seizures: No Cardiology Problems Congestive Heart Failure: No Respiratory Problems Chronic Obstructive Pulmonary Disease (COPD): No Asthma: No Genital/Urinary Problems Renal Disease: No Endocrine Problems Diabetes Mellitus Type 1: No Diabetes Mellitus Type 2: No Blood Problems Sickle Cell Disease: No Other Problems Developmental Delay: No Falls: No Blood Transfusions: No Chicken Pox: Yes
== END 2024-12-21 10:59 | disposition home or self-care (01) ==
LOC: HODSRG 10:36
PROVIDERS: PCP Physician Assistant; Referring Provider Physician Assistant; Supervising Provider Surgery; Visit Provider Surgery
DX: Z71.2 Person consulting for explanation of examination or test findings (principal); D36.9 Benign neoplasm, unspecified site
CPT/HCPCS: 99213; G0463